=== PATIENT | male | born 1965 ===

== ENCOUNTER 2021-03-31 17:40 | Emergency (ER) | payer OTHER ==
[~2021-03-31] VITALS: Ht 175.3 cm; Wt 69.4 kg
[2021-03-31 19:03] LABS: Basophils # (auto) 0.1 10 ^3/uL (0-0.2); Basophils % (auto) 0.4 % (0.0-2.0); Eosinophils # (auto) 0 10 ^3/uL (0-0.8); Hematocrit 40.8 % (41.0-53.0); Hemoglobin 13.4 g/dL (13.5-17.5); Lymphocytes # (auto) 1.4 10 ^3/uL (0.4-5.4); Lymphocytes % (auto) 8.8 % (10.0-50.0); Mean Corpuscular Hemoglobin 29.4 pg (28.0-32.0); Mean Corpuscular Hgb Conc. 32.8 g/dL (32.0-36.0); Mean Corpuscular Volume 89.6 fL (80.0-100.0); Monocytes # (auto) 0.6 10 ^3/uL (0-1.3); Monocytes % (auto) 3.7 % (0.0-12.0); Neutrophils % (auto) 87.1 % (37.0-80.0); Nucleated Red Blood Cells % 0.1 %; Red Blood Cells 4.55 10^6/uL (4.5-5.90); Red Cell Distribution Width 13.5 % (11.8-14.3); White Blood Cell 16.1 10^3/uL (4.4-10.8)
[2021-03-31 19:21] LABS: Albumin 3.8 g/dL (3.4-5.0); Anion Gap 9 (5-15); Blood Urea Nitrogen 10 mg/dL (7-18); Calcium 8.5 mg/dL (8.5-10.1); Carbon Dioxide 24 mmol/L (21-32); Chloride 104 mmol/L (98-107); Glucose 99 mg/dL (74-106); Potassium 3.3 mmol/L (3.5-5.1); Sodium 137 mmol/L (136-145)
[2021-03-31 19:26] LABS: Alanine Aminotransferase 18 U/L (16-61); Alkaline Phosphatase 70 U/L (45-117); Aspartate Aminotransferase 12 U/L (15-37); BUN/Creatinine Ratio 11.9; Bilirubin, Total 0.6 mg/dL (0.2-1.0); GFR African American 122 mL/min; GFR Non-African American 101 mL/min
[2021-03-31] MEDS ORDERED: ACETAMINOPHEN 325 MG TAB PO ONE (23:00)
[2021-03-31] MEDS ORDERED: LACTATED RINGER'S 1,000 ML IV ONE (23:00)
[2021-03-31 23:44] VITALS: BP 110/55
== END 2021-03-31 23:46 | disposition home or self-care (01) ==
LOC: ER 17:40 → EDBD 17:40 → ER 23:46
DX: R55 Syncope and collapse (principal); R53.1 Weakness; R51.9 Headache, unspecified; R11.0 Nausea; I10 Essential (primary) hypertension; E78.5 Hyperlipidemia, unspecified; E78.00 Pure hypercholesterolemia, unspecified; Z88.0 Allergy status to penicillin; W18.39XA Other fall on same level, initial encounter; Y93.89 Activity, other specified; Y92.89 Other specified places as the place of occurrence of the external cause; Y99.8 Other external cause status
CPT/HCPCS: 36415; 70450; 72125; 80053; 84484; 85025; 93005; 96360